=== PATIENT | male | born 1960 | race Caucasian/White ===

== ENCOUNTER 2016-06-26 20:33 | Emergency (ER) | payer SELFPAY ==
--- NOTE | 2016-06-26 21:59 | DIAGNOSTIC IMAGING REPORT ---
PROCEDURE: CT HEAD W/WO CONTRAST INDICATION: ALTERED, RIGHT SIDED WEAKNESS TECHNIQUE: Axial CT images were acquired through the head. The patient was then administered of 75 ml Isovue [address] images were acquired through the head with coronal and sagittal reformations created. COMPARISON: None. FINDINGS: Midportion of the brain was not imaged on the noncontrast scan secondary to significant patient motion. There is moderate size area of loss of navarro-white matter differentiation and moderate hypodensity involving the left frontotparietall region resulting in effacement of sylvian fissure. No intraparenchymal hemorrhage or abnormal extra -axial fluid collection. There is no midline shift. Ventricular system is normal size and position. Postcontrast, patent vasculature is seen in this region. (Angiography was not performed) A discrete enhancing lesion is not definitely discernible. Near-complete opacification of the right maxillary sinus with a dependent air-fluid levels centrally. Partial opacification of the right-sided ethmoid air cells. Frontal, left maxillary, sphenoid sinuses and mastoid cavities are normally aerated. Intact calvarium without obvious fracture. IMPRESSION: 1. Moderate size area of edema and sulcal effacement in the left frontoparietal region. This likely represents ischemia/infarct, possibly underlying mass and edema. MRI of the brain is recommended. 2. No evidence of hemorrhage. 3. Discussed with Dr. Keith at [address] scans at this facility use dose modulation, iterative reconstruction, and/or weight-based dosing when appropriate to reduce radiation dose to as low as reasonably achievable.
--- NOTE | 2016-06-26 22:06 | DIAGNOSTIC IMAGING REPORT ---
PROCEDURE: XR CHEST 1 VIEW INDICATION: ALTERED, RIGHT SIDED WEAKNESS TECHNIQUE: Single view chest. 2109 hours COMPARISON: None FINDINGS: Normal cardiomediastinal contour and central vessels. Vague density in the retrocardiac region. Thickening of the right minor fissure. Mild peribronchial thickening bilaterally. No effusion or pneumothorax. Intact osseous structures. IMPRESSION: 1. Small retrocardiac density may represent atelectasis or aspiration pneumonia. 2. Mild peribronchial thickening
--- NOTE | 2016-06-26 22:50 | ED ORDER SUMMARY ---
..... Patient: KANU CARMONA OrderSheet [facility] VisitID: [id number] [address] [place] [address] 56y, M Registration Date/Time: 06/26/2016 ORDER SHEET Weight: 83.9 kg (estimated) Allergies: Unable to Obtain GENERAL ORDERS: CT Head w/wo Cont (No) (N/A) Urgent (20:37 06/26/2016 Mare Santana) (Ack 20:47 Andreea) (21:34 MCampbell) Chest 1V Urgent (20:41 06/26/2016 Mare Santana) (Ack 20:47 Andreea) (21:34 MCampbell) Crushed Stone Grader (Continuous) (altered) (20:41 06/26/2016 Mare Santana) (20:51 Alfonzoard R.N.) Stroke Panel Stat (20:41 06/26/2016 Mare Santana) (Ack 20:46 Andreea) (20:51 JBullard R.N.) Ethyl Alcohol Urgent (20:41 06/26/2016 Mare Santana) (Ack 20:46 Andreea) (20:51 Alfonzoard R.N.) Urine Drug Screen Urgent (20:41 06/26/2016 Mare Santana) (Ack 20:46 Andreea) (20:59 RCollier R.N.) UA-Culture if indicated Urgent (20:41 06/26/2016 Mare Santana) (Ack 20:46 Andreea) (20:59 RCollier R.N.) CPK Urgent (20:41 06/26/2016 Mare Santana) (Ack 20:46 Andreea) (20:51 Alfonzoard R.N.) Troponin-I Urgent (20:41 06/26/2016 Mare Santana) (Ack 20:46 Andreea) (20:51 JBullard R.N.) Lactate, Serum Urgent (20:41 06/26/2016 Mare Santana) (Ack 20:47 Andreea) (20:51 JBullard R.N.) Pulse oximeter (20:41 06/26/2016 Mare Santana) (20:51 Sandy Morrow) EKG - ER Stat (20:41 06/26/2016 Mare Santana) (Ack 20:47 CHategekimana) (20:51 Sandy Morrow) Harrell Catheter (20:42 06/26/2016 Mare Santana) (20:59 Angelo Morrow) MEDICATION ORDERS: IV FLUIDS: IV NS : initial bolus 1000 mL (1000 mL/hr), then none - for X2 (NOW) (warmed) (20:41 06/26/2016 Mare Santana) (20:52 Sandy Morrow) ORDER SHEET NOTES: [Electronically signed by Gary Turpin R.N. (23:19 06/26/2016)] [Electronically signed by Carlos Enrique Keith Dr. (00:39 06/27/2016)] [Electronically signed by Reginaldo Dalal Dr. (09:27 07/07/2016)] [Electronically locked/signed by Gary Turpin R.N. (23:19 06/26/2016)]
--- NOTE | 2016-06-26 22:50 | ED NURSING NOTES ---
Clinical Report - Nurses [facility] [address] [place] [address] 06/26/2016 20:32 Patient: KANU CARMONA TRIAGE Triage time 2034. Acuity: LEVEL 2. Chief Complaint: WEAKNESS and IMPAIRED SPEECH and DISORIENTED and DECREASED RESPONSIVENESS. --20:39 Gary Turpin R.N. 20:35 06/26/16. BP: 172/94. HR: 89. RR: 16. O2 saturation: 97%. Temp: 98 F. Pain level now 0/10. --20:39 Gary Turpin R.N. Weight: 83.9 kg estimated. Height/Length: 71 inches Estimated. BMI: 25.8. --20:39 Gary Turpin R.N. Medications Unable to Obtain. --20:37 Gary Turpin R.N. Allergies Unable to Obtain. --20:37 Gary Turpin R.N. History Arrived by EMS. Historian: patient. Unaccompanied. This started yesterday. Patient was last known well (Jun 25 PM). He has had altered mental status, difficulty with speech, trouble walking and weakness. Treatment MEDICAL DEVICE ASSEMBLER: None. PAST MEDICAL HX: Unknown. Immunizations: status is unknown. --20:39 Gary Turpin R.N. SKIN INTEGRITY ASSESSMENT: Skin integrity risk assessment was performed. Risk factors identified include restricted mobility, altered level of consciousness and sensory deficit present. FALL RISK ASSESSMENT: Fall risk assessment completed. Risk factors identified include patient impairment of mobility, sensation and cognition. NUTRITIONAL RISK ASSESSMENT: The nutritional assessment could not be obtained. FUNCTIONAL ASSESSMENT: The functional assessment could not be obtained due to patient condition. LEARNING NEEDS ASSESSMENT: The learning needs assessment could not be obtained due to the patient's condition. --20:41 Gary Turpin R.N. PHYSICAL ASSESSMENT To room via stretcher. Patient gowned. GENERAL / NEURO / PSYCH: Awake. Alert. Appears in no acute distress. He is disoriented and confused. The patient is disoriented to person, place, time and situation. Altered mental status. Patient has no response. No response to questions and responds to simple commands. Abnormal verbal response (no verbalization). Expressive and receptive aphasia. Mood/affect normal and abnormal (flat). Finger-nose test abnormal. Moves extremities with decreased movement of the right upper and lower extremity. Strength is unequal; left allocations clerk is greater than the right allocations clerk and left foot push/pull is greater than the right foot push/pull. He has had weakness of the right arm, hand and leg. Pupillary exam: Right pupil 3mm, round and reactive to light directly and with accommodation. Left pupil: 3mm, round and reactive to light directly and with accommodation. HEENT: No nystagmus. No signs of head trauma. No trouble handling secretions. RESPIRATORY: Breath sounds within normal limits. Respirations not labored. CVS: Capillary refill less than 2 seconds. SKIN: Skin is pale. Skin is intact and dry. Skin is cool. --20:50 Gary Turpin R.N. GENERAL / NEURO / PSYCH: NIH Stroke Scale: score 13. Level of Consciousness: alert (0). LOC Questions: neither (2). LOC Commands: neither (2). Best gaze: normal (0). Visual field loss: none (0). Facial palsy: normal (0). Motor arm: no drift left arm (0) and no effort against gravity right arm (3). Motor leg: no drift left leg (0) and no effort against gravity right leg (3). Limb ataxia: none (0). Sensory loss: none (0). Aphasia: mute (3). Dysarthria: normal (0). Extinction and inattention: none (0). --20:55 Gary Turpin R.N. GENERAL / NEURO / PSYCH: Andrade Coma Scale: 10- eyes open spontaneously (4); best verbal response- none (1); best motor response- localizes to pain (5). --20:55 Gary Turpin R.N. NURSING PROGRESS NOTES Patient gowned. Head of bed elevated. Reassurance given. Patient identifiers checked. Call light placed in reach. Side rails up x 2. Bed placed in lowest position. Brakes of bed on. --20:50 Gary Turpin R.N. 20:52 06/26/2016 Site #1 started via IV in the right antecubital space with an 18g angiocath, with aseptic technique and good blood return; one attempt. Saline lock flushed with saline. --20:52 Gary Turpin R.N. 20:52 06/26/2016 Started bag #1 1000 mL IV Fluids IV NS (Saline); bolus of 1000 mL wide open via site #1. Allergies verified and confirmed 5 rights. IV patency established. IV site checked: no pain, redness, or swelling. IV flushed thoroughly pre- and post-medication administration. --20:52 Gary Turpin R.N. 20:52 06/26/2016 Site #2 started via IV in the left antecubital space with an 18g angiocath, with aseptic technique and good blood return; one attempt. Blood drawn: rainbow set. Labeled in the presence of the patient and sent to the lab. Saline lock flushed with saline. --20:53 Gary Turpin R.N. 14 fr santana catheter. Reason for indwelling catheter: patient's decreased level of consciousness. During procedure hand hygiene observed and sterile equipment and aseptic technique used. Return of dean-colored urine; attached to bedside drainage bag positioned below the bladder and secured with stabilization device. He tolerated procedure well. Patient ID band checked for patient name and birthdate: patient confirmed. Catheterized urine collected with return of dean-colored urine; sample sent to lab. Specimen labeled in the presence of the patient. --20:59 Telma Pulido R.N. EKG time: (2139). EKG was ordered, performed by a tech and shown to the ED physician. --21:45 Yuri Breen, ER Glass Frame Fitter ( pt's RLE now moving against gravity though pt not able to understand or follow directions.). --22:25 Gary Turpin R.N. DISPOSITION / DISCHARGE Departure time: 2319. Transferred to [facility]. Summary of care provided to EMS via paper (2317). Transported via ambulance by EMS with monitor and IV. Report was given to a nurse- sent to unit printer. Report included patient's care, treatment, medications, reviewed medication reconcilliation, and condition (including any recent changes or anticipated changes). No questions were asked. Care was transferred. Patient has no belongings. --23:19 Gary Turpin R.N. 23:18 06/26/16. BP: 140/85. HR: 88. RR: 16. O2 saturation: 99%. Temp: 98 F. Pain level now 0/10. --23:19 Gary Turpin R.N. Locked/Released at 06/26/2016 23:19 by Gary Turpin R.N.
--- NOTE | 2016-06-26 22:50 | ED CLINICAL REPORT ---
Clinical Report - Physicians/Mid Levels [facility] [address] [place] [address] 06/26/2016 20:32 Patient: KANU CARMONA Arrived- By ambulance. Historian- EMS personnel. HISTORY OF PRESENT ILLNESS Chief Complaint: DECREASED MENTAL STATUS. This started unknown and is still present. It is not gone now. (last seen normal yesterday). Unknown when patient was last known well. (unclear what happened or who called. EMS does not know.). REVIEW OF SYSTEMS Unable to obtain. PAST HISTORY ( unable to obtain). SOCIAL HISTORY unable to obtain secondary to patient's condition. FAMILY HISTORY Unable to obtain family medical history due to patient's altered mental status. ADDITIONAL NOTES The nursing notes have been reviewed. PHYSICAL EXAM Vital Signs: 06/26/2016 20:35 BP: 172/94. HR: 89. RR: 16. O2 saturation: 97%. Temp: 98 F. Hypertensive. Oxygen saturation normal. Appearance: Alert. Head: Head atraumatic. ENT: Normal ENT inspection. Airway intact. Dry mucous membranes present. Neck: Normal inspection. Neck supple. No meningeal signs. CVS: Normal heart rate and rhythm. Heart sounds normal. Pulses normal. Respiratory: No respiratory distress. Breath sounds normal. No rales, wheezes or rhonchi. Abdomen: Soft and nontender. No organomegaly. Back: Normal inspection. Skin: Skin warm and dry. Normal skin color. No rash. Normal skin turgor. Extremities: No lower extremity edema. No calf tenderness. Neuro: Alert. (atient with decreased sensation to the right side of his body. Patient also with 0 out of 5 strength although this is somewhat difficult to determine as the patient may or may not completely understand what is been saying. Patient does have 5 out of 5 strength on the left side and follows commands on that side. Patient did not understand when holding up a sign in front of his face and looking at the paper which red "blinked twice if you can read this. "). LABS, X-RAYS, AND EKG EKG: No acute process. No acute ischemia. Normal sinus rhythm. Normal P waves. Normal KALEB. Normal ST and T waves, QT and QTc. The study has been interpreted contemporaneously by me. The study has been independently viewed by me. The EKG appears to be a good tracing. Chest X-ray: (PROCEDURE: XR CHEST 1 VIEW INDICATION: ALTERED, RIGHT SIDED WEAKNESS TECHNIQUE: Single view chest. 2110 hours COMPARISON: None FINDINGS: Normal cardiomediastinal contour and central vessels. Vague density in the retrocardiac region. Thickening of the right minor fissure. Mild peribronchial thickening bilaterally. No effusion or pneumothorax. Intact osseous structures. IMPRESSION: 1. Small retrocardiac density may represent atelectasis or aspiration pneumonia. 2. Mild peribronchial thickening). The X-rays were independently viewed by me and interpreted contemporaneously by me. CT Head: (PROCEDURE: CT HEAD W/WO CONTRAST INDICATION: ALTERED, RIGHT SIDED WEAKNESS TECHNIQUE: Axial CT images were acquired through the head. The patient was then administered of 75 ml Isovue [address] images were acquired through the head with coronal and sagittal reformations created. COMPARISON: None. FINDINGS: Midportion of the brain was not imaged on the noncontrast scan secondary to significant patient motion. There is moderate size area of loss of navarro-white matter differentiation and moderate hypodensity involving the left frontotparietall region resulting in effacement of sylvian fissure. No intraparenchymal hemorrhage or abnormal extra-axial fluid collection. There is no midline shift. Ventricular system is normal size and position. Postcontrast, patent vasculature is seen in this region. (Angiography was not performed) A discrete enhancing lesion is not definitely discernible. Near-complete opacification of the right maxillary sinus with a dependent air-fluid levels centrally. Partial opacification of the right-sided ethmoid air cells. Frontal, left maxillary, sphenoid sinuses and mastoid cavities are normally aerated. Intact calvarium without obvious fracture. IMPRESSION: 1. Moderate size area of edema and sulcal effacement in the left frontoparietal region. This likely represents ischemia/infarct, possibly underlying mass and edema. MRI of the brain is recommended. 2. No evidence of hemorrhage.). Laboratory Tests: UA-Culture if indicated: (NURY: 06/26/2016 20:56) ( MsgRcvd 06/26/2016 21:12) Final results Test Result Flag Units (Reference) URINE COLOR YELLOW URINE APPEARANCE CLEAR URINE GLUCOSE NEGATIVE (NEGATIVE) URINE BILIRUBIN ICTOTEST NEGATIVE (NEGATIVE) URINE KETONE 3+ (NEGATIVE) URINE SPECIFIC GRAVITY 1.025 (1.010-1.030) URINE PH 6.0 (5.0-8.0) URINE PROTEIN NEGATIVE (NEGATIVE) URINE UROBILINOGEN 0.2 EU/dL (0.2-1.0) URINE NITRITE NEGATIVE (NEGATIVE) URINE BLOOD NEGATIVE (NEGATIVE) URINE LEUK ESTERASE NEGATIVE (NEGATIVE) URINE RBC 0-1 rbc/hpf (0-1) URINE WBC RARE wbc/hpf (0-1) URINE EPITHELIAL CELLS 0-1 EPI/hpf (0-5) URINE BACTERIA NONE SEEN (NONE SEEN) URINE COMMENT CULT NOT INDICATED URINE CULTURES ARE SET-UP BASED ON THE FOLLOWING CRITERIA:POSITIVE NITRITEPOSITIVE LEUKOCYTE ESTERASEGREATER THAN 10 WHITE BLOOD CELLSMODERATE (2+) OR GREATER BACTERIA CBC w Diff: (NURY: 06/26/2016 20:42) ( [facility] 06/26[place] 20:59) Final results Test Result Flag Units (Reference) WHITE BLOOD COUNT 10.1 K/uL (4.5-11.5) RED BLOOD COUNT 5.06 M/uL (4.50-5.90) HEMOGLOBIN 15.1 gm/dL (13.5-17.5) HEMATOCRIT 44.9 % (41.0-53.0) MEAN CELL VOLUME 89 fL (80-100) MEAN CORPUSCULAR HGB 30 pg (26-34) MEAN CORPUSCULAR HGB CONC 34 g/dL (31-37) RED CELL DISTRIBUTION WIDTH 12.8 % (11.6-14.8) PLATELET COUNT 325 K/uL (150-400) NEUTROPHIL % 78.9 H % (50-75) LYMPH % 13.8 L % (25-40) MONO % 6.9 % (3-14) EOSINOPHIL % 0 % (0-4) BASOPHIL % 0.4 % (0-2) PT with INR: (NURY: 06/26/2016 20:42) ( IagRcvd 06/26/2016 21:08) Final results Test Result Flag Units (Reference) INR 1.1 (0.8-1.2) Low Intensity Therapy: INR 1.5-2.0 PT range 18.5-23.1Mod.Intensity Therapy: INR 2.0-3.0 PT range 23.1-31.5High Intensity Therapy: INR 2.5-3.5 PT range 27.4-35.5High Intensity Therapy 2: INR 3.0-4.0 PT range 31.5-39.3 APTT 37 H SECONDS (24-34) FIBRINOGEN 385 mg/dL (193-455) D-DIMER QUANTITATIVE 0.84 H ug/mLFEU (0.27-0.52) The primary value of this quantitative assay relates toits negative predictive value (i.e. exclusion) of pulmonaryembolism/deep vein thrombosis/DIC.Elevated levels of d-dimer may also occur with:, age, cancer, inflammation, liver disease,post-op, infection, hematoma, coronary disease, peripheralarteriopathy, bleeding disorders and thrombolytic treatment.Results should be correlated with other clinical andradiological data.Testing Methodology: Latex Immunoassay Urine Drug Screen: (NURY: 06/26/2016 20:56) ( MsgRcvd 06/26/2016 21:32) Final results Test Result Flag Units (Reference) AMPHETAMINE/METHAMPHETAMINE POSITIVE H (NEGATIVE) BARBITURATE NEGATIVE (NEGATIVE) BENZODIAZEPINE NEGATIVE (NEGATIVE) CANNABINOID POSITIVE H (NEGATIVE) COCAINE NEGATIVE (NEGATIVE) ECSTASY NEGATIVE (NEGATIVE) METHADONE NEGATIVE (NEGATIVE) OPIATE NEGATIVE (NEGATIVE) The urine drug screen is a qualitative screening test fordrug overdose and abuse. All screen results should beconsidered as presumptive.Drugs screened for are as follows:BenzodiazepinesCocaineAmphetamines/MetamphetaminesTHC (Tetrahydrocannabinol)OpiatesBarbituratesEcstasyMethadonePositive results are unconfirmed. For confirmation, notifythe lab for the specimen to be sent to the reference lab.All confirmations must be performed by a differentmethodology.The ingestion of natural herbal and plant productscontaining Ephedra/Ephedra metabolites can produce in urineone or more substances capable of cross reacting withamphetamine/methamphetamine immunoassays. These testsprovide a preliminary result only. A more specificalternative chemical method must be used to obtain aconfirmed analytical result. Lactate, Serum: (NURY: 06/26/2016 21:18) ( [facility] [place] 21:44) Final results Test Result Flag Units (Reference) LACTIC ACID 1.2 mmol/L (0.4-2.0) CPK: (NURY: 06/26/2016 20:42) ( [facility] [place] 06/26/2016 21:26) Final results Test Result Flag Units (Reference) CPK 147 U/L (24-260) TROPONIN I 0.38 ng/mL (0.00-1.5) TROPONIN REFERENCE RANGE:<0.1 NEGATIVE0.1-1.5 INDETERMINANT>1.5 POSITIVE ETHYL ALCOHOL <3 L mg/dL (3-10) CMP: (NURY: 06/26/2016 20:42) ( [facility] [place] 06/26/2016 21:26) Final results Test Result Flag Units (Reference) GLUCOSE 99 mg/dL (70-110) BUN 13 mg/dL (7-18) CREATININE 0.7 mg/dL (0.6-1.3) Estimated GFR >60 mL/min Estimated GFR- >60 mL/min Note: Persistent reduction over 3 months in eGFR<60 mL/min/1.73 m2 defines CKD. Patients with eGFR values>=60 mL/min/1.73 m2 may also have CKD if evidence ofpersistent proteinuria. Additional information may be foundat www.kidney.org. SODIUM 140 mmol/L (136-145) POTASSIUM 4.0 mmol/L (3.5-5.1) CHLORIDE 105 mmol/L (98-107) CARBON DIOXIDE 25 mmol/L (21-32) CALCIUM 8.7 mg/dL (8.5-10.1) TOTAL PROTEIN 7.6 g/dL (6.4-8.2) ALBUMIN 3.5 g/dL (3.3-5.0) BILIRUBIN, TOTAL 0.4 mg/dL (0.0-1.0) ALKALINE PHOSPHATASE 65 U/L (46-116) AST (SGOT) 19 U/L (15-37) ALT (SGPT) 24 U/L (12-78) . PROGRESS AND PROCEDURES Course of Care: The patient is a 56-year-old male presenting for evaluation of altered mental status. Patient does not have any noticeable movements the right extremities, differential diagnosis is extensive at this time. CT scan and laboratory studies have been ordered. Differential is extensive and includes stroke, infectious problem, and metabolic disturbance. the patient is not a candidate for TPA as the patient's downtime was unknown and likely occurred last night. The patient's workup was significant for the findings above. Patient's urine drug screen is positive for to substances. The CT scan also shows concerning signs of edema and effacement of the frontal parietal region. Likely representing ischemia/infarct. Stroke neuro was consult at [facility]. The patient was transferred. Do not feel that this is an infectious etiology. at this time, patient would require further workupin regards to the etiology of his altered mental status. Patient's condition is guarded at this time. Patient will be transferred to higher level of care for further diagnostic workup and definitive management. Unable to obtain informed written consent from patient. The patient was transferred due to medical necessity. Please see nursing notes for further details. Critical care performed (45 minutes). Time is exclusive of separately billable procedures. Time includes: direct patient care, patient reassessment, coordination of patient care, interpretation of data, review of patient's medical records, medical consultation and documentation of patient care. Consult obtained. [facility] stroke neuro. Disposition: Transferred to [facility]. (Electronically signed by Reginaldo Dalal Dr. 07/07/2016 9:27) Arrived- By ambulance. Historian- EMS personnel. HISTORY OF PRESENT ILLNESS Chief Complaint: DECREASED MENTAL STATUS. This started unknown and is still present. It is not gone now. (last seen normal yesterday). Unknown when patient was last known well. The patient was found unresponsive. The patient was found unresponsive. (unclear what happened or who called. EMS does not know.). The patient has had new onset of constant weakness of the right arm (moderate), right hand (moderate), right leg (moderate) and right foot (moderate). Usually is alert and oriented X3 and usually has normal mobility. Similar symptoms previously: None. Recent medical care: Not recently seen/assessed. REVIEW OF SYSTEMS Unobtainable due to patient's altered mental status. Unable to obtain. All systems otherwise negative, except as recorded above. PAST HISTORY ( unable to obtain). SOCIAL HISTORY Current every day smoker. FAMILY HISTORY Unable to obtain family medical history due to patient's altered mental status. ADDITIONAL NOTES The nursing notes have been reviewed. PHYSICAL EXAM Vital Signs: 06/26/2016 20:35 BP: 172/94. HR: 89. RR: 16. O2 saturation: 97%. Temp: 98 F. Hypertensive. Oxygen saturation normal. Appearance: Alert. Head: Head atraumatic. ENT: Normal ENT inspection. Airway intact. Dry mucous membranes present. Neck: Normal inspection. Neck supple. No meningeal signs. CVS: Normal heart rate and rhythm. Heart sounds normal. Pulses normal. Respiratory: No respiratory distress. Breath sounds normal. No rales, wheezes or rhonchi. Abdomen: Soft and nontender. No organomegaly. Back: Normal inspection. Skin: Skin warm and dry. Normal skin color. No rash. Normal skin turgor. Extremities: No lower extremity edema. No calf tenderness. Neuro: Alert. (atient with decreased sensation to the right side of his body. Patient also with 0 out of 5 strength although this is somewhat difficult to determine as the patient may or may not completely understand what is been saying. Patient does have 5 out of 5 strength on the left side and follows commands on that side. Patient did not understand when holding up a sign in front of his face and looking at the paper which red "blinked twice if you can read this. "). LABS, X-RAYS, AND EKG EKG: EKG time: (2040). Normal sinus rhythm. Rate: 84. Normal P waves. Normal KALEB. Normal QRS complex. Normal axis. Normal QT and QTc. Tall T waves in lead V3. Prior EKG unavailable. The study has been interpreted contemporaneously by me. The study has been independently viewed by me. The EKG appears to be a good tracing. Interpretation time: ordered and reviewed by Dr. Dalal. CT Head: (1. Moderate size area of edema and sulcal effacement in the left frontoparietal region. This likely represents ischemia/infarct, possibly underlying mass and edema. MRI of the brain is recommended. 2. No evidence of hemorrhage.). Head CT performed with and without contrast. The study was interpreted by the radiologist and discussed with the radiologist. Interpretation time: 22:00. Laboratory Tests: UA-Culture if indicated: (NURY: 06/26/2016 20:56) ( [facility] 06/[place] 21:12) Final results Test Result Flag Units (Reference) URINE COLOR YELLOW URINE APPEARANCE CLEAR URINE GLUCOSE NEGATIVE (NEGATIVE) URINE BILIRUBIN ICTOTEST NEGATIVE (NEGATIVE) URINE KETONE 3+ (NEGATIVE) URINE SPECIFIC GRAVITY 1.025 (1.010-1.030) URINE PH 6.0 (5.0-8.0) URINE PROTEIN NEGATIVE (NEGATIVE) URINE UROBILINOGEN 0.2 EU/dL (0.2-1.0) URINE NITRITE NEGATIVE (NEGATIVE) URINE BLOOD NEGATIVE (NEGATIVE) URINE LEUK ESTERASE NEGATIVE (NEGATIVE) URINE RBC 0-1 rbc/hpf (0-1) URINE WBC RARE wbc/hpf (0-1) URINE EPITHELIAL CELLS 0-1 EPI/hpf (0-5) URINE BACTERIA NONE SEEN (NONE SEEN) URINE COMMENT CULT NOT INDICATED URINE CULTURES ARE SET-UP BASED ON THE FOLLOWING CRITERIA:POSITIVE NITRITEPOSITIVE LEUKOCYTE ESTERASEGREATER THAN 10 WHITE BLOOD CELLSMODERATE (2+) OR GREATER BACTERIA CBC w Diff: (NURY: 06/26/2016 20:42) ( [facility] 06/26[place] 20:59) Final results Test Result Flag Units (Reference) WHITE BLOOD COUNT 10.1 K/uL (4.5-11.5) RED BLOOD COUNT 5.06 M/uL (4.50-5.90) HEMOGLOBIN 15.1 gm/dL (13.5-17.5) HEMATOCRIT 44.9 % (41.0-53.0) MEAN CELL VOLUME 89 fL (80-100) MEAN CORPUSCULAR HGB 30 pg (26-34) MEAN CORPUSCULAR HGB CONC 34 g/dL (31-37) RED CELL DISTRIBUTION WIDTH 12.8 % (11.6-14.8) PLATELET COUNT 325 K/uL (150-400) NEUTROPHIL % 78.9 H % (50-75) LYMPH % 13.8 L % (25-40) MONO % 6.9 % (3-14) EOSINOPHIL % 0 % (0-4) BASOPHIL % 0.4 % (0-2) PT with INR: (NURY: 06/26/2016 20:42) ( MsgRcvd 06/26/2016 21:08) Final results Test Result Flag Units (Reference) INR 1.1 (0.8-1.2) Low Intensity Therapy: INR 1.5-2.0 PT range 18.5-23.1Mod.Intensity Therapy: INR 2.0-3.0 PT range 23.1-31.5High Intensity Therapy: INR 2.5-3.5 PT range 27.4-35.5High Intensity Therapy 2: INR 3.0-4.0 PT range 31.5-39.3 APTT 37 H SECONDS (24-34) FIBRINOGEN 385 mg/dL (193-455) D-DIMER QUANTITATIVE 0.84 H ug/mLFEU (0.27-0.52) The primary value of this quantitative assay relates toits negative predictive value (i.e. exclusion) of pulmonaryembolism/deep vein thrombosis/DIC.Elevated levels of d-dimer may also occur with:, age, cancer, inflammation, liver disease,post-op, infection, hematoma, coronary disease, peripheralarteriopathy, bleeding disorders and thrombolytic treatment.Results should be correlated with other clinical andradiological data.Testing Methodology: Latex Immunoassay Urine Drug Screen: (NURY: 06/26/2016 20:56) ( MsgRcvd 06/26/2016 21:32) Final results Test Result Flag Units (Reference) AMPHETAMINE/METHAMPHETAMINE POSITIVE H (NEGATIVE) BARBITURATE NEGATIVE (NEGATIVE) BENZODIAZEPINE NEGATIVE (NEGATIVE) CANNABINOID POSITIVE H (NEGATIVE) COCAINE NEGATIVE (NEGATIVE) ECSTASY NEGATIVE (NEGATIVE) METHADONE NEGATIVE (NEGATIVE) OPIATE NEGATIVE (NEGATIVE) The urine drug screen is a qualitative screening test fordrug overdose and abuse. All screen results should beconsidered as presumptive.Drugs screened for are as follows:BenzodiazepinesCocaineAmphetamines/MetamphetaminesTHC (Tetrahydrocannabinol)OpiatesBarbituratesEcstasyMethadonePositive results are unconfirmed. For confirmation, notifythe lab for the specimen to be sent to the reference lab.All confirmations must be performed by a differentmethodology.The ingestion of natural herbal and plant productscontaining Ephedra/Ephedra metabolites can produce in urineone or more substances capable of cross reacting withamphetamine/methamphetamine immunoassays. These testsprovide a preliminary result only. A more specificalternative chemical method must be used to obtain aconfirmed analytical result. Lactate, Serum: (NURY: 06/26/2016 21:18) ( [facility] 06/26/2016 21:44) Final results Test Result Flag Units (Reference) LACTIC ACID 1.2 mmol/L (0.4-2.0) CPK: (NURY: 06/26/2016 20:42) ( [facility] 06/26/2016 21:26) Final results Test Result Flag Units (Reference) CPK 147 U/L (24-260) TROPONIN I 0.38 ng/mL (0.00-1.5) TROPONIN REFERENCE RANGE:<0.1 NEGATIVE0.1-1.5 INDETERMINANT>1.5 POSITIVE ETHYL ALCOHOL <3 L mg/dL (3-10) CMP: (NURY: 06/26/2016 20:42) ( [facility] [place] 06/26/2016 21:26) Final results Test Result Flag Units (Reference) GLUCOSE 99 mg/dL (70-110) BUN 13 mg/dL (7-18) CREATININE 0.7 mg/dL (0.6-1.3) Estimated GFR >60 mL/min Estimated GFR- >60 mL/min Note: Persistent reduction over 3 months in eGFR<60 mL/min/1.73 m2 defines CKD. Patients with eGFR values>=60 mL/min/1.73 m2 may also have CKD if evidence ofpersistent proteinuria. Additional information may be foundat www.kidney.org. SODIUM 140 mmol/L (136-145) POTASSIUM 4.0 mmol/L (3.5-5.1) CHLORIDE 105 mmol/L (98-107) CARBON DIOXIDE 25 mmol/L (21-32) CALCIUM 8.7 mg/dL (8.5-10.1) TOTAL PROTEIN 7.6 g/dL (6.4-8.2) ALBUMIN 3.5 g/dL (3.3-5.0) BILIRUBIN, TOTAL 0.4 mg/dL (0.0-1.0) ALKALINE PHOSPHATASE 65 U/L (46-116) AST (SGOT) 19 U/L (15-37) ALT (SGPT) 24 U/L (12-78) . PROGRESS AND PROCEDURES Course of Care: 22:08 06/26/16. 2 of the patient's daughters arrived and have not seen/spoken to him in 2 days. They were able to get in touch with the person he has been living with and was completely normal at 0800 today, but went home around 1800 and he was in bed and appeared as if he had been in bed all day and was unresponsive and subsequently called 911. The patient is a 56-year-old male presenting for evaluation of altered mental status. Patient does not have any noticeable movements the right extremities, differential diagnosis is extensive at this time. CT scan and laboratory studies have been ordered. Patient's care will be transitioned over to the oncoming doctor at the change of shift. Consult obtained from neurology. call returned 22:19 Dr. Fisher stroke attending [facility]. Family counseled in person regarding the patient's serious condition, test results, diagnosis and need for additional testing and transfer. Concerns were addressed. Disposition: Benefits, risks and alternatives to transfer explained to family. Transferred to [facility]. Condition: stable. CLINICAL IMPRESSION Nontraumatic cerebrovascular accident- ischemic infarct. TPA was not administered . tPA was not administered because the time patient was last known well was greater than 3 hours prior to arrival. patient arrived in the emergency department greater than 2 hours since time last known well. Abnormal tests: (Indeterminate troponin). INSTRUCTIONS Follow-up: Screening today revealed the patient's blood pressure to be in the hypertensive range. The patient was transferred and blood pressure will be managed by the receiving provider. (Electronically signed by Carlos Enrique Keith Dr. 06/27/2016 0:39)
--- NOTE | 2016-06-26 22:50 | ED NURSING NOTES ---
Clinical Report - Nurses [facility] [address] [place] [address] 06/26/2016 20:32 Patient: KANU CARMONA TRIAGE Triage time 2034. Acuity: LEVEL 2. Chief Complaint: WEAKNESS and IMPAIRED SPEECH and DISORIENTED and DECREASED RESPONSIVENESS. --20:39 Gary Turpin R.N. 20:35 06/26/16. BP: 172/94. HR: 89. RR: 16. O2 saturation: 97%. Temp: 98 F. Pain level now 0/10. --20:39 Gary Turpin R.N. Weight: 83.9 kg estimated. Height/Length: 71 inches Estimated. BMI: 25.8. --20:39 Gary Turpin R.N. Medications Unable to Obtain. --20:37 Gary Turpin R.N. Allergies Unable to Obtain. --20:37 Gary Turpin R.N. History Arrived by EMS. Historian: patient. Unaccompanied. This started yesterday. Patient was last known well (Jun 25 PM). He has had altered mental status, difficulty with speech, trouble walking and weakness. Treatment LEPIDOPTERIST: None. PAST MEDICAL HX: Unknown. Immunizations: status is unknown. --20:39 Gary Turpin R.N. SKIN INTEGRITY ASSESSMENT: Skin integrity risk assessment was performed. Risk factors identified include restricted mobility, altered level of consciousness and sensory deficit present. FALL RISK ASSESSMENT: Fall risk assessment completed. Risk factors identified include patient impairment of mobility, sensation and cognition. NUTRITIONAL RISK ASSESSMENT: The nutritional assessment could not be obtained. FUNCTIONAL ASSESSMENT: The functional assessment could not be obtained due to patient condition. LEARNING NEEDS ASSESSMENT: The learning needs assessment could not be obtained due to the patient's condition. --20:41 Gary Turpin R.N. PHYSICAL ASSESSMENT To room via stretcher. Patient gowned. GENERAL / NEURO / PSYCH: Awake. Alert. Appears in no acute distress. He is disoriented and confused. The patient is disoriented to person, place, time and situation. Altered mental status. Patient has no response. No response to questions and responds to simple commands. Abnormal verbal response (no verbalization). Expressive and receptive aphasia. Mood/affect normal and abnormal (flat). Finger-nose test abnormal. Moves extremities with decreased movement of the right upper and lower extremity. Strength is unequal; left hairspring adjuster is greater than the right hairspring adjuster and left foot push/pull is greater than the right foot push/pull. He has had weakness of the right arm, hand and leg. Pupillary exam: Right pupil 3mm, round and reactive to light directly and with accommodation. Left pupil: 3mm, round and reactive to light directly and with accommodation. HEENT: No nystagmus. No signs of head trauma. No trouble handling secretions. RESPIRATORY: Breath sounds within normal limits. Respirations not labored. CVS: Capillary refill less than 2 seconds. SKIN: Skin is pale. Skin is intact and dry. Skin is cool. --20:50 Gary Turpin R.N. GENERAL / NEURO / PSYCH: NIH Stroke Scale: score 13. Level of Consciousness: alert (0). LOC Questions: neither (2). LOC Commands: neither (2). Best gaze: normal (0). Visual field loss: none (0). Facial palsy: normal (0). Motor arm: no drift left arm (0) and no effort against gravity right arm (3). Motor leg: no drift left leg (0) and no effort against gravity right leg (3). Limb ataxia: none (0). Sensory loss: none (0). Aphasia: mute (3). Dysarthria: normal (0). Extinction and inattention: none (0). --20:55 Gary Turpin R.N. GENERAL / NEURO / PSYCH: Andrade Coma Scale: 10- eyes open spontaneously (4); best verbal response- none (1); best motor response- localizes to pain (5). --20:55 Gary Turpin R.N. NURSING PROGRESS NOTES Patient gowned. Head of bed elevated. Reassurance given. Patient identifiers checked. Call light placed in reach. Side rails up x 2. Bed placed in lowest position. Brakes of bed on. --20:50 Gary Turpin R.N. 20:52 06/26/2016 Site #1 started via IV in the right antecubital space with an 18g angiocath, with aseptic technique and good blood return; one attempt. Saline lock flushed with saline. --20:52 Gary Turpin R.N. 20:52 06/26/2016 Started bag #1 1000 mL IV Fluids IV NS (Saline); bolus of 1000 mL wide open via site #1. Allergies verified and confirmed 5 rights. IV patency established. IV site checked: no pain, redness, or swelling. IV flushed thoroughly pre- and post-medication administration. --20:52 Gary Turpin R.N. 20:52 06/26/2016 Site #2 started via IV in the left antecubital space with an 18g angiocath, with aseptic technique and good blood return; one attempt. Blood drawn: rainbow set. Labeled in the presence of the patient and sent to the lab. Saline lock flushed with saline. --20:53 Gary Turpin R.N. 14 fr santana catheter. Reason for indwelling catheter: patient's decreased level of consciousness. During procedure hand hygiene observed and sterile equipment and aseptic technique used. Return of dean-colored urine; attached to bedside drainage bag positioned below the bladder and secured with stabilization device. He tolerated procedure well. Patient ID band checked for patient name and birthdate: patient confirmed. Catheterized urine collected with return of dean-colored urine; sample sent to lab. Specimen labeled in the presence of the patient. --20:59 Telma Pulido R.N. EKG time: (2139). EKG was ordered, performed by a tech and shown to the ED physician. --21:45 Yuri Breen, ER Smoking Tobacco Packer Hand ( pt's RLE now moving against gravity though pt not able to understand or follow directions.). --22:25 Gary Turpin R.N. DISPOSITION / DISCHARGE Departure time: 2319. Transferred to [facility]. Summary of care provided to EMS via paper (2317). Transported via ambulance by EMS with monitor and IV. Report was given to a nurse- sent to unit printer. Report included patient's care, treatment, medications, reviewed medication reconcilliation, and condition (including any recent changes or anticipated changes). No questions were asked. Care was transferred. Patient has no belongings. --23:19 Gary Turpin R.N. 23:18 06/26/16. BP: 140/85. HR: 88. RR: 16. O2 saturation: 99%. Temp: 98 F. Pain level now 0/10. --23:19 Gary Turpin R.N. Locked/Released at 06/26/2016 23:19 by Gary Turpin R.N.
--- NOTE | 2016-06-26 22:50 | ED ORDER SUMMARY ---
..... Patient: KANU CARMONA OrderSheet [facility] VisitID: [id number] [address] [place] [address] 56y, M Registration Date/Time: 06/26/2016 ORDER SHEET Weight: 83.9 kg (estimated) Allergies: Unable to Obtain GENERAL ORDERS: CT Head w/wo Cont (No) (N/A) Urgent (20:37 06/26/2016 Mare Santana) (Ack 20:47 Andreea) (21:34 MCampbell) Chest 1V Urgent (20:41 06/26/2016 Mare Santana) (Ack 20:47 Andreea) (21:34 MCampbell) Agricultural Technician (Continuous) (altered) (20:41 06/26/2016 Mare Santana) (20:51 Alfonzoard R.N.) Stroke Panel Stat (20:41 06/26/2016 Mare Santana) (Ack 20:46 Andreea) (20:51 JBullard R.N.) Ethyl Alcohol Urgent (20:41 06/26/2016 Mare Santana) (Ack 20:46 Andreea) (20:51 Alfonzoard R.N.) Urine Drug Screen Urgent (20:41 06/26/2016 Mare Santana) (Ack 20:46 Andreea) (20:59 RCollier R.N.) UA-Culture if indicated Urgent (20:41 06/26/2016 Mare Santana) (Ack 20:46 Andreea) (20:59 RCollier R.N.) CPK Urgent (20:41 06/26/2016 Mare Santana) (Ack 20:46 Andreea) (20:51 Alfonzoard R.N.) Troponin-I Urgent (20:41 06/26/2016 Mare Santana) (Ack 20:46 Andreea) (20:51 JBullard R.N.) Lactate, Serum Urgent (20:41 06/26/2016 Mare Santana) (Ack 20:47 Andreea) (20:51 JBullard R.N.) Pulse oximeter (20:41 06/26/2016 Mare Santana) (20:51 Sandy Morrow) EKG - ER Stat (20:41 06/26/2016 Mare Santana) (Ack 20:47 CHategekimana) (20:51 Sandy Morrow) Harrell Catheter (20:42 06/26/2016 Mare Santana) (20:59 Angelo Morrow) MEDICATION ORDERS: IV FLUIDS: IV NS : initial bolus 1000 mL (1000 mL/hr), then none - for X2 (NOW) (warmed) (20:41 06/26/2016 Mare Santana) (20:52 Sandy Morrow) ORDER SHEET NOTES: [Electronically signed by Gary Turpin R.N. (23:19 06/26/2016)] [Electronically signed by Carlos Enrique Keith Dr. (00:39 06/27/2016)] [Electronically signed by Reginaldo Dalal Dr. (09:27 07/07/2016)] [Electronically locked/signed by Gary Turpin R.N. (23:19 06/26/2016)]
--- NOTE | 2016-07-07 09:28 | ED DISCHARGE INSTRUCTIONS ---
Patient: CARMONA, KANU General Instructions [facility] VisitID: [id number] [address] [place] [place] [address] 56y, M Registration Date/Time: 06/26/2016 (Electronically signed by Reginaldo Dalal Dr. 07/07/2016 9:27) Nontraumatic cerebrovascular accident- ischemic infarct. TPA was not administered . tPA was not administered because the time patient was last known well was greater than 3 hours prior to arrival. patient arrived in the emergency department greater than 2 hours since time last known well. Abnormal tests: (Indeterminate troponin). INSTRUCTIONS Follow-up: Screening today revealed the patient's blood pressure to be in the hypertensive range. The patient was transferred and blood pressure will be managed by the receiving provider. (Electronically signed by Carlos Enrique Keith Dr. 06/27/2016 0:39)
--- NOTE | 2016-07-07 09:28 | ED MAR SUMMARY ---
..... Medication Administration Record [facility] [address] [place] [address] Patient: KANU CARMONA Visit ID: [id number] 56y, M Weight: 83.9 kg Height/Length: 71 in BMI: 25.8 ALLERGIES: Unable to Obtain Start 20:52 06/26/2016 Gary Turpin R.N. Medication Administered: IV NS (SALINE), Dose: IV Fluids, Bolus: 1000 mL wide open, Dispensed: 1000 mL bag, Site: #1 right AC. Medication Ordered: IV NS : initial bolus 1000 mL (1000 mL/hr), then none - for X2 (NOW) (warmed).
--- NOTE | 2016-07-07 09:28 | ED MED RECONCILIATION SUMMARY ---
Patient: KANU CARMONA Medication Reconciliation Report [facility] VisitID: [id number] [address] [place] [address] 56y, M Registration Date/Time: 06/26/2016 Weight: 83.9 kg Height/Length: 71 in. BMI: 25.8 ALLERGIES: Unable to Obtain The patient's Home Medications are listed below: Unable to obtain. The source(s) of the original Home Medication information: Not obtained. The following Medications were given to the patient in the Emergency Department: IV NS IV Fluids bolus 1000 mL wide open, administered: 06/26/2016 8:52:00 PM The following Medications were prescribed to the patient: None.
--- NOTE | 2016-07-07 09:28 | ED MED RECONCILIATION SUMMARY ---
Patient: KANU CARMONA Medication Reconciliation Report [facility] VisitID: [id number] [address] [place] [address] 56y, M Registration Date/Time: 06/26/2016 Weight: 83.9 kg Height/Length: 71 in. BMI: 25.8 ALLERGIES: Unable to Obtain The patient's Home Medications are listed below: Unable to obtain. The source(s) of the original Home Medication information: Not obtained. The following Medications were given to the patient in the Emergency Department: IV NS IV Fluids bolus 1000 mL wide open, administered: 06/26/2016 8:52:00 PM The following Medications were prescribed to the patient: None.
--- NOTE | 2016-07-07 09:28 | ED MAR SUMMARY ---
..... Medication Administration Record [facility] [address] [place] [address] Patient: KANU CARMONA Visit ID: [id number] 56y, M Weight: 83.9 kg Height/Length: 71 in BMI: 25.8 ALLERGIES: Unable to Obtain Start 20:52 06/26/2016 Gary Turpin R.N. Medication Administered: IV NS (SALINE), Dose: IV Fluids, Bolus: 1000 mL wide open, Dispensed: 1000 mL bag, Site: #1 right AC. Medication Ordered: IV NS : initial bolus 1000 mL (1000 mL/hr), then none - for X2 (NOW) (warmed).
--- NOTE | 2016-07-07 09:28 | ED DISCHARGE INSTRUCTIONS ---
Patient: CARMONA, KANU General Instructions [facility] VisitID: [id number] [address] [place] [address] 56y, M Registration Date/Time: 06/26/2016 (Electronically signed by Reginaldo Dalal Dr. 07/07/2016 9:27) Nontraumatic cerebrovascular accident- ischemic infarct. TPA was not administered . tPA was not administered because the time patient was last known well was greater than 3 hours prior to arrival. patient arrived in the emergency department greater than 2 hours since time last known well. Abnormal tests: (Indeterminate troponin). INSTRUCTIONS Follow-up: Screening today revealed the patient's blood pressure to be in the hypertensive range. The patient was transferred and blood pressure will be managed by the receiving provider. (Electronically signed by Carlos Enrique Keith Dr. 06/27/2016 0:39)
== END 2016-06-26 23:20 | disposition short-term general hospital (02) ==
LOC: ED SRH 20:33
PROC: 0T9B70Z Drainage of Bladder with Drainage Device, Via Natural or Artificial Opening (ICD-10-PCS; principal; 2016-06-26)
DX: I63.9 Cerebral infarction, unspecified (principal); R79.89 Other specified abnormal findings of blood chemistry; F17.200 Nicotine dependence, unspecified, uncomplicated
CPT/HCPCS: 83475; 90004; 90074; 90100; 90616; 91556; 92010; 92031; 92610; 92760; 92761; 92762; 92763; 92764; 92765; 92766; 92767; 94001; 94050; 94060; 95059